=== PATIENT | female | born 1965 | race Two or more races ===

== ENCOUNTER 2021-05-15 08:17 | Emergency (ER) | payer MEDICARE, OTHER ==
[~2021-05-15] VITALS: Ht 162.6 cm; Wt 68.2 kg
[~2021-05-15 08:17] MED LIST: ASPI-556 PO; GABA-1216 PO; RANI-379 PO
[2021-05-15 08:25] VITALS: BP 156/93
== END 2021-05-15 09:42 | disposition home or self-care (01) ==
LOC: EMS 08:17
DX: M25.561 Pain in right knee (principal); F20.9 Schizophrenia, unspecified; K21.9 Gastro-esophageal reflux disease without esophagitis; F12.90 Cannabis use, unspecified, uncomplicated; F15.90 Other stimulant use, unspecified, uncomplicated; Z79.899 Other long term (current) drug therapy
CPT/HCPCS: 82962; 99282